=== PATIENT | male | born 1970 | race Hispanic/Latino ===

== ENCOUNTER → 2017-11-05 | Outpatient (CLI) | payer OTHER | END | disposition home or self-care (01) | LOC: SLP 19:59 | PROVIDERS: ATTEND Family Medicine | DX: G47.33 Obstructive sleep apnea (adult) (pediatric) (principal); G47.13 Recurrent hypersomnia; G47.00 Insomnia, unspecified; I10 Essential (primary) hypertension; E66.9 Obesity, unspecified | CPT/HCPCS: 95810 ==

== ENCOUNTER → 2020-12-24 | Outpatient (CLI) | payer BC ==
[~2020-12-24] MED LIST: REGADENOSON 0.4 MG/5 ML PF SYG IVP SCH
== END | disposition home or self-care (01) ==
LOC: RAH 09:52
PROVIDERS: ATTEND Family Medicine
DX: R07.89 Other chest pain (principal); I20.8 Other forms of angina pectoris
CPT/HCPCS: 78452; 93017; 96374; A9500 ×2; J2785

== ENCOUNTER → 2021-02-15 | Outpatient (CLI) | payer BC | END | disposition home or self-care (01) | LOC: OIH 11:38 | PROVIDERS: ATTEND Family Medicine | DX: I10 Essential (primary) hypertension (principal) | CPT/HCPCS: 71046 ==